=== PATIENT | male | born 1990 | race American Indian/Alaskan Native ===

== ENCOUNTER 2021-07-23 05:34 | Emergency (ER) | payer BC ==
[2021-07-23] MEDS ORDERED: FAMOTIDINE 20 MG/2 ML INJ IV ONE (06:09)
[2021-07-23] MEDS ORDERED: SODIUM CHLORIDE 0.9% 1000 ML 1,000 ML IV ONE (06:09)
[2021-07-23] MEDS ORDERED: MORPHINE 4 MG/1 ML INJ IV ONE (06:09)
[2021-07-23] MEDS ORDERED: ONDANSETRON 4 MG/2 ML INJ IV ONE (06:09)
[2021-07-23] MEDS ORDERED: SUCRALFATE 1 GM TAB PO ONE (06:10)
--- NOTE | 2021-07-23 06:15 | Emergency Department Report ---
<MARSHA MENSAH - Last Filed: 07/23/21 07:03> ED Abdominal Pain HPI - General Chief Complaint: Nausea/Vomiting/Diarrhea Stated Complaint: ABD ULCER FLARE UP PUI?: No Source: patient Mode of arrival: Ambulatory Limitations: No Limitations - History of Present Illness Initial Comments: Patient is a 30-year-old -[place] male with a history of Crohn's disease and Gastric ulcers who presents to the ED with complaint of acute onset persistent epigastric pain with intractable nausea and vomiting for the last 24 hours. Patient states that he has not been able to keep anything down in the last 8 hours and states that he ran out of his Crohn's disease medicine, [facility] [facility] and had to state 3 weeks without it and suspects that the pain is due to the delay in restarting the medication. Patient denies chest pain, shortness of br eath, fever, chills, hematemesis, hematochezia, cough, sore throat, headache, diarrhea, dysuria, urinary frequency and urgency and testicular pain. MD Complaint: abdominal pain, other (Intractable nausea and vomiting) -: Sudden, hour(s) (24) Location: epigastric Radiation: none Migration to: no migration Severity scale (0 -10): 8 Quality: cramping, aching, sharp Consistency: constant Improves With: nothing Worsens With: eating, vomiting Context: other (Chronic gastric ulcers and Crohn's disease) Associated Symptoms: denies other symptoms, nausea, vomiting, anorexia. denies: diarrhea, fever, chills, dysuria, hematemesis, hematochezia, melena, hematuria, syncope - Related Data Previous Rx's Medication Instructions Recorded Last Taken Type Famotidine [Pepcid] 20 mg PO BID #30 tablet 07/23/21 Unknown Rx HYDROcodone/APAP 5-325 [[facility] 1 each PO Q4HR PRN #10 tablet 07/23/21 Unknown Rx 5/325] Ondansetron (Nf) [Zofran TAB] 8 mg PO Q8HR PRN #20 tablet 07/23/21 Unknown Rx Pantoprazole [Protonix] 40 mg PO QDAY #30 tablet 07/23/21 Unknown Rx Allergies Allergy/AdvReac Type Severity Reaction Status Date / Time No Known Allergies Allergy Verified 07/23/21 06:12 ED Review of Systems Constitutional: denies: chills, fever Eyes: denies: eye pain, eye discharge, vision change ENT: denies: ear pain, throat pain Respiratory: denies: cough, shortness of breath, wheezing Cardiovascular: denies: chest pain, palpitations Endocrine: no symptoms reported Gastrointestinal: abdominal pain (Epigastric pain), nausea, vomiting. denies: diarrhea Genitourinary: denies: urgency, dysuria Musculoskeletal: denies: back pain, joint swelling, arthralgia Skin: denies: rash, lesions Neurological: denies: headache, weakness, paresthesias Psychiatric: denies: anxiety, depression Hematological/Lymphatic: denies: easy bleeding, easy bruising ED Past Medical Hx - Past Medical History Additional medical history: Gastric ulcer; Crohn's disease - Medications Home Medications: Home Medications Medication Instructions Recorded Confirmed Last Taken Type Famotidine [Pepcid] 20 mg PO BID #30 tablet 07/23/21 Unknown Rx HYDROcodone/APAP 5-325 [[facility] 1 each PO Q4HR PRN #10 tablet 07/23/21 Unknown Rx 5/325] Ondansetron (Nf) [Zofran TAB] 8 mg PO Q8HR PRN #20 tablet 07/23/21 Unknown Rx Pantoprazole [Protonix] 40 mg PO QDAY #30 tablet 07/23/21 Unknown Rx ED Physical Exam - General General appearance: alert, in no apparent distress - Head Head exam: Present: atraumatic, normocephalic, normal inspection - Eye Eye exam: Present: normal appearance, PERRL, EOMI Pupils: Present: normal accommodation - ENT ENT exam: Present: normal exam, normal orophraynx, mucous membranes moist, TM's normal bilaterally, normal external ear exam - Neck Neck exam: Present: normal inspection, full ROM - Respiratory Respiratory exam: Present: normal lung sounds bilaterally. Absent: respiratory distress, wheezes, rales, rhonchi, chest wall tenderness - Cardiovascular Cardiovascular Exam: Present: normal rhythm, bradycardia, normal heart sounds. Absent: systolic murmur, diastolic murmur, rubs, gallop - GI/Abdominal GI/Abdominal exam: Present: soft, tenderness (Palpable epigastric tenderness), normal bowel sounds. Absent: guarding, rebound, hyperactive bowel sounds, hypoactive bowel sounds - Extremities Exam Extremities exam: Present: normal inspection, full ROM, normal capillary refill. Absent: tenderness - Back Exam Back exam: Present: normal inspection, full ROM. Absent: tenderness, CVA tenderness (R), CVA tenderness (L), muscle spasm - Neurological Exam Neurological exam: Present: alert, oriented X3, CN II-XII intact, normal gait, reflexes normal - Psychiatric Psychiatric exam: Present: normal affect, normal mood - Skin Skin exam: Present: warm, dry, intact, normal color. Absent: rash ED Medical Decision Making - Medical Decision Making This is a 30-year-old -[place] male with a history of Crohn's disease and Gastric ulcers who presents to the ED with complaint of acute onset persistent epigastric pain with intractable nausea and vomiting for the last 24 hours. Patient states that he has not been able to keep anything down in the last 8 hours and states that he ran out of his Crohn's disease medicine, [facility] and had to state 3 weeks without it and suspects that the pain is due to the delay in restarting the medication. In the ED, patient is alert and oriented x3 and is not in any distress. Patient is hemodynamically stable. Patient was treated in the ED with antiemetics, antacids, pain medications and was given normal saline 1 L IV bolus x1. Patient's care was transferred to Ms. Latosha Richards PA-C at shift change. She shall review all lab test results and disposition the patient accordingly - Differential Diagnosis Viral gastroenteritis; GERD; gastric ulcer; dehydration; Crohn's flareup ED Disposition Clinical Impression: Nausea and vomiting in adult patient, Abdominal pain, acute, epigastric, GERD (gastroesophageal reflux disease), Gastric ulcer Disposition: 01 HOME / SELF CARE / HOMELESS Is pt being admited?: No Does the pt Need Aspirin: No Condition: Stable Instructions: Abdominal Pain, Adult, Peptic Ulcer, [id number], Crohn's Disease Additional Instructions: I recommend that you take the Pepcid, the Protonix, the Zofran and the hydrocodone as prescribed to help with your symptoms. 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 Return to the ER if your symptoms changes or worsens in any way. Prescriptions: HYDROcodone/APAP 5-325 [[facility] 5/325] 1 each PO Q4HR PRN #10 tablet PRN Reason: Pain Famotidine [Pepcid] 20 mg PO BID #30 tablet Pantoprazole [Protonix] 40 mg PO QDAY #30 tablet Ondansetron (Nf) [Zofran TAB] 8 mg PO Q8HR PRN #20 tablet PRN Reason: Vomiting Referrals: HUGH MEEK MD [Primary Care Provider] - 3-5 Days Forms: Work/School Release Form(ED) <LORILATOSHA Abdul - Last Filed: 07/23/21 09:17> ED Review of Systems ROS: Stated complaint: ABD ULCER FLARE UP Other details as noted in HPI ED Course Vital Signs 07/23/21 06:10 Temperature 97.6 F Pulse Rate 49 L Respiratory 12 Rate Blood Pressure 135/76 [Right] O2 Sat by Pulse 99 Oximetry ED Medical Decision Making - Lab Data Result diagrams: 07/23/21 07:05 07/23/21 07:05 - Medical Decision Making 0900: Labs reviewed without any acute abnormalities. Patient resting comfortably when I walk in room. Patient received IV fluids, antiemetics, pain medication and antacids. Patient states that he still having some pain mainly in the epigastric area. Repeat abdominal exam shows mild epigastric tenderness but no guarding or rebound no abdominal distention or rigidity. I do not see indication for emergent abdominal CT at this time. Discussed all lab results with patient. 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 Patient is not toxic he is not ill-appearing and currently not in any significant distress. He expressed understanding of instructions and agree with plan. Patient was stable at time of discharge. 0916: Patient driving himself home. Percocet was not given. Patient instructed to fill the pain medication was prescribed and he can start taking it at home. Critical care attestation.: If time is entered above; I have spent that time in minutes in the direct care of this critically ill patient, excluding procedure time. ED Disposition Is pt being admited?: No Does the pt Need Aspirin: No Time of Disposition: 09:06
[2021-07-23 07:59] LABS: Basophils % (Auto) 0.4 % (0.0-1.8); Eosinophils # (Auto) 0.1 K/mm3 (0.0-0.4); Eosinophils % (Auto) 1.3 % (0.0-4.3); Hematocrit 46.7 % (35.5-45.6); Hemoglobin 15.7 gm/dl (11.8-15.2); Lymphocytes # (Auto) 1.3 K/mm3 (1.2-5.4); Mean Corpuscular HGB Conc 34 % (32-34); Mean Corpuscular Volume 94 fl (84-94); Monocytes # (Auto) 0.5 K/mm3 (0.0-0.8); Monocytes % (Auto) 5.2 % (0.0-7.3); Platelet Count 241 K/mm3 (140-440); Red Blood Count 4.99 M/mm3 (3.65-5.03); Red Cell Distribution Width 13.3 % (13.2-15.2)
[2021-07-23 08:22] LABS: Alanine Aminotransferase 22 units/L (7-56); Albumin 4.3 g/dL (3.9-5); BUN/Creatinine Ratio 11; Blood Urea Nitrogen 12 mg/dL (9-20); Calcium 9.8 mg/dL (8.4-10.2); Hemolysis Index 137
[2021-07-23] MEDS ORDERED: oxyCODONE /ACETAMINOPHEN 5-325MG TAB PO ONE (09:00)
[2021-07-23 09:26] VITALS: BP 147/79
== END 2021-07-23 09:26 | disposition home or self-care (01) ==
LOC: ED 05:34
DX: K21.9 Gastro-esophageal reflux disease without esophagitis (principal); R10.13 Epigastric pain; R11.2 Nausea with vomiting, unspecified; K25.9 Gastric ulcer, unspecified as acute or chronic, without hemorrhage or perforation; Z79.899 Other long term (current) drug therapy
CPT/HCPCS: 36415; 80053; 83690; 85025; 96361; 96374; 96375; 99283; J2270; J2405; J3490; J7030; Q0162